=== PATIENT | female | born 1985 | race Caucasian/White ===

== ENCOUNTER → 2016-08-23 | Outpatient (CLI) | payer OTHER ==
[~2016-08-23] MED LIST: LEVO150T PO; LEVO25TA2 PO
== END | disposition home or self-care (01) ==
LOC: CFH 09:59
PROVIDERS: ATTEND Registered Nurse
DX: M50.33 Other cervical disc degeneration, cervicothoracic region (principal)
CPT/HCPCS: 72040; 72141